=== PATIENT | male | born 1965 | race Caucasian/White ===

== ENCOUNTER 2019-05-03 12:19 | Day surgery (SDC) | payer OTHER ==
[2019-05-03 12:47] VITALS: BMI 23.9
[2019-05-03 13:40] VITALS: TEMP 97.5
[2019-05-03 14:16] VITALS: BP 101/68; PULSE 63
--- NOTE | 2019-05-05 16:24 | PATH ---
Surgical Pathology Report Patient Name: MARGY AYOUB [facility]. Rec. #: [id number] /Age/Gender: 1965 (Age: 53) / M Account: [id number] Location: [facility]-ENDOSCOPY Taken: 05/03/2019 Received: 05/04/2019 Reported: 05/05/2019 Physicians: Guillermo Celestin D.O. Specimen(s) Received A: ANGULARIS AND BODY B: DISTAL ESOPHAGUS PLAQUE Clinical History Reflux without esophagitis Postoperative diagnosis: Gastritis Final Diagnosis A. STOMACH, ANGULARIS AND BODY, BIOPSY: GASTRIC BODY MUCOSA WITH MILD CHRONIC GASTRITIS. IMMUNOHISTOCHEMICAL STAIN FOR H. PYLORI IS NEGATIVE. B. DISTAL ESOPHAGUS, PLAQUE, BIOPSY: SQUAMOUS MUCOSA WITH CHANGES OF MILD REFLUX TYPE ESOPHAGITIS. Electronically Signed Monika Hills M.D. Gross Description A. Received in formalin, labeled "biopsy angularis/body" are 3 mercedes, irregular portions of soft tissue ranging from 0.3-0.4 cm. in greatest dimension. The specimens are submitted in toto in one cassette. B. Received in formalin, labeled "biopsy distal esophagus plaque" is a mercedes, irregular portion of soft tissue measuring 0.5 cm. in greatest dimension. The specimen is submitted in toto in one cassette. 05/04/201905/04/2019
== END 2019-05-03 14:27 | disposition home or self-care (01) ==
LOC: JASU-ENDO 12:19
PROVIDERS: ATTEND Internal Medicine Gastroenterology
PROC: 0DB68ZX Excision of Stomach, Via Natural or Artificial Opening Endoscopic, Diagnostic (ICD-10-PCS; 2019-05-03)
PROC: 0DB38ZX Excision of Lower Esophagus, Via Natural or Artificial Opening Endoscopic, Diagnostic (ICD-10-PCS; principal; 2019-05-03 11:45)
DX: K29.50 Unspecified chronic gastritis without bleeding (principal); K21.0 Gastro-esophageal reflux disease with esophagitis; I10 Essential (primary) hypertension; E78.00 Pure hypercholesterolemia, unspecified; G47.30 Sleep apnea, unspecified; Z86.11 Personal history of tuberculosis; Z87.19 Personal history of other diseases of the digestive system
CPT/HCPCS: 88305-TC; 88342-TC

== ENCOUNTER 2019-05-19 07:14 | Day surgery (SDC) | payer OTHER ==
[2019-05-19 07:55] VITALS: BMI 25.0
[2019-05-19 10:35] VITALS: TEMP 98.5
[2019-05-19 10:37] VITALS: PULSE 54
[2019-05-19 11:11] VITALS: BP 116/74
== END 2019-05-19 11:05 | disposition home or self-care (01) ==
LOC: JASU-ENDO 07:14
PROVIDERS: ATTEND Internal Medicine Gastroenterology
PROC: 0DJD8ZZ Inspection of Lower Intestinal Tract, Via Natural or Artificial Opening Endoscopic (ICD-10-PCS; principal; 2019-05-19 09:00)
DX: Z12.12 Encounter for screening for malignant neoplasm of rectum (principal); Z53.8 Procedure and treatment not carried out for other reasons; G47.30 Sleep apnea, unspecified; J44.9 Chronic obstructive pulmonary disease, unspecified

== ENCOUNTER 2019-06-23 08:02 | Day surgery (SDC) | payer OTHER ==
[2019-06-22 09:05] VITALS: BMI 23.9
[2019-06-23] MEDS ORDERED: ETOMIDATE 20 MG/10 ML AMPUL IVPUSH ONE (09:16)
[2019-06-23 09:53] VITALS: TEMP 98
[2019-06-23 10:39] VITALS: BP 114/66; PULSE 68
--- NOTE | 2019-06-24 18:50 | PATH ---
Surgical Pathology Report Patient Name: MARGY AYOUB [facility]. Rec. #: [id number] /Age/Gender: 1965 (Age: 54) / M Account: [id number] Location: [facility]-ENDOSCOPY Taken: 06/23/2019 Received: 06/23/2019 Reported: 06/24/2019 Physicians: Guillermo Celestin D.O. Specimen(s) Received RECTAL POLYP Clinical History Screening colonoscopy Postoperative diagnosis: Rectal polyp, internal hemorrhoids Final Diagnosis RECTUM, POLYP, BIOPSY: TUBULAR ADENOMA. Electronically Signed Monika Hills M.D. Gross Description Received in formalin, labeled "polyp rectum" is a mercedes, irregular portion of soft tissue measuring 0.7 cm. in greatest dimension. The specimen is submitted in toto in one cassette. MLSZ/06/23/2019 sanml/06/23/2019
== END 2019-06-23 10:36 | disposition home or self-care (01) ==
LOC: JASU-ENDO 08:02
PROVIDERS: ATTEND Internal Medicine Gastroenterology
PROC: 0DBP8ZX Excision of Rectum, Via Natural or Artificial Opening Endoscopic, Diagnostic (ICD-10-PCS; principal; 2019-06-23 09:00)
DX: Z12.11 Encounter for screening for malignant neoplasm of colon (principal); K62.1 Rectal polyp; K64.8 Other hemorrhoids; G47.30 Sleep apnea, unspecified
CPT/HCPCS: 88305-TC

== ENCOUNTER 2020-12-21 06:03 | Day surgery (SDC) | payer OTHER ==
[2020-12-17 14:39] VITALS: BMI 24.7
[2020-12-21] MEDS ORDERED: MIDAZOLAM HCL 2 MG/2 ML SINGLE DOSE VIAL ONE (06:23)
[2020-12-21] MEDS ORDERED: ROPIVACAINE HCL 0.5% 30ML VIAL ONE (06:23)
[2020-12-21] MEDS ORDERED: EPINEPHrine 1:1,000 1 MG/1 ML - 30ML VIAL (INJECTION) ONE (07:10)
[2020-12-21] MEDS ORDERED: BUPIVACAINE HCL/PF 0.25% (2.5MG/ML) 10 ML VIAL ONE (07:10)
[2020-12-21] MEDS ORDERED: SUCCINYLCHOLINE CHLORIDE 200 MG/10 ML SYRINGE ONE (07:29)
[2020-12-21] MEDS ORDERED: PROPOFOL 20 ML ONE ×7 (07:29)
[2020-12-21] MEDS ORDERED: ONDANSETRON 4 MG/2 ML VIAL ONE (07:50)
[2020-12-21] MEDS ORDERED: KETOROLAC TROMETHAMINE 30 MG/1 ML VIAL ONE (07:50)
[2020-12-21] MEDS ORDERED: DEXAMETHASONE SOD PHOSPHATE 4 MG/1 ML VIAL ONE (07:50)
[2020-12-21] MEDS ORDERED: ceFAZolin SODIUM 1 GM VIAL ONE (07:50)
[2020-12-21] MEDS ORDERED: ePHEDrine SULFATE 50 MG/1 ML AMPULE ONE (07:50)
[2020-12-21] MEDS ORDERED: LIDOCAINE HCL/PF 2% SDV 5ML VIAL ONE (07:50)
[2020-12-21] MEDS ORDERED: BUPIVACAINE HCL/PF 0.25% (2.5MG/ML) 10 ML VIAL IJ ONE (08:41)
[2020-12-21] MEDS ORDERED: ONDANSETRON 4 MG/2 ML VIAL IVPUSH PRN (10:18)
[2020-12-21] MEDS ORDERED: PROMETHAZINE HCL 25 MG/1 ML VIAL IVPUSH PRN (10:18)
[2020-12-21] MEDS ORDERED: oxyCODONE HCL 5 MG TABLET PO PRN ×2 (10:18)
[2020-12-21 12:09] VITALS: BP 108/70; PULSE 84; TEMP 97.9
== END 2020-12-21 12:08 | disposition home or self-care (01) ==
LOC: FASU 06:03
PROVIDERS: ATTEND Orthopaedic Surgery
PROC: 0LS34ZZ Reposition Right Upper Arm Tendon, Percutaneous Endoscopic Approach (ICD-10-PCS; 2020-12-21)
PROC: 0RNJ4ZZ Release Right Shoulder Joint, Percutaneous Endoscopic Approach (ICD-10-PCS; 2020-12-21)
PROC: 0MM14ZZ Reattachment of Right Shoulder Bursa and Ligament, Percutaneous Endoscopic Approach (ICD-10-PCS; 2020-12-21)
PROC: 0LQ14ZZ Repair Right Shoulder Tendon, Percutaneous Endoscopic Approach (ICD-10-PCS; principal; 2020-12-21 08:11)
PROC: 0RHJ44Z Insertion of Internal Fixation Device into Right Shoulder Joint, Percutaneous Endoscopic Approach (ICD-10-PCS; 2020-12-21 08:11)
DX: M75.121 Complete rotator cuff tear or rupture of right shoulder, not specified as traumatic (principal); M75.21 Bicipital tendinitis, right shoulder; M75.01 Adhesive capsulitis of right shoulder; M94.211 Chondromalacia, right shoulder; M65.811 Other synovitis and tenosynovitis, right shoulder; S43.431A Superior glenoid labrum lesion of right shoulder, initial encounter; X58.XXXA Exposure to other specified factors, initial encounter; Y92.9 Unspecified place or not applicable; Y93.9 Activity, unspecified; G47.30 Sleep apnea, unspecified; I10 Essential (primary) hypertension
CPT/HCPCS: 23430; 29823; 29826; 29827; C1713; 88304-TC; 94760

== ENCOUNTER 2022-04-15 04:12 | Day surgery (SDC) | payer OTHER ==
[2022-04-10 14:56] VITALS: BMI 24.1
[2022-04-15] MEDS ORDERED: ACETAMINOPHEN 325 MG TABLET (FP) PO PRN (11:34)
[2022-04-15] MEDS ORDERED: ONDANSETRON 4 MG/2 ML VIAL IVPUSH PRN (11:34)
[2022-04-15] MEDS ORDERED: oxyCODONE HCL 5 MG TABLET PO PRN (11:34)
[2022-04-15] MEDS ORDERED: MIDAZOLAM HCL 2 MG/2 ML SINGLE DOSE VIAL ONE (11:41)
[2022-04-15] MEDS ORDERED: LACTATED RINGERS SOLUTION 1,000 ML IV SCH (11:45)
[2022-04-15] MEDS ORDERED: KETOROLAC TROMETHAMINE 30 MG/1 ML VIAL ONE (12:12)
[2022-04-15 13:15] VITALS: PULSE 50
[2022-04-15 13:50] VITALS: BP 109/78; TEMP 97.9
== END 2022-04-15 13:35 | disposition home or self-care (01) ==
LOC: JASU-SURG 04:12
PROVIDERS: ATTEND Urology
PROC: 0TF3XZZ Fragmentation in Right Kidney Pelvis, External Approach (ICD-10-PCS; principal; 2022-04-15 12:00)
DX: N20.0 Calculus of kidney (principal)

== ENCOUNTER 2023-05-29 04:29 | Day surgery (SDC) | payer OTHER ==
[2023-05-28 10:45] VITALS: BMI 23.3
[2023-05-29] MEDS ORDERED: LIDOCAINE HCL/PF 1% SDV 5ML VIAL ONE (08:16)
[2023-05-29] MEDS ORDERED: BUPIVACAINE HCL/PF 0.75% 10 ML VIAL ONE (08:16)
[2023-05-29] MEDS ORDERED: ACETAMINOPHEN 500 MG TABLET (FP) PO PRN (08:30)
[2023-05-29 12:34] VITALS: RESP 18
[2023-05-29] MEDS ORDERED: LIDOCAINE 1% P/F 10 MG/ML VIAL INF ONE (14:15)
[2023-05-29] MEDS ORDERED: BUPIVACAINE HCL/PF 0.75% 10 ML VIAL NR ONE ×2 (14:15)
[2023-05-29 14:46] VITALS: BP 116/77; PULSE 53; TEMP 98.5
== END 2023-05-29 15:00 | disposition home or self-care (01) ==
LOC: JASU-SURG 04:29
PROVIDERS: ATTEND Pain Medicine Pain Medicine
PROC: 3E0T33Z Introduction of Anti-inflammatory into Peripheral Nerves and Plexi, Percutaneous Approach (ICD-10-PCS; 2023-05-29)
PROC: 3E0T3BZ Introduction of Anesthetic Agent into Peripheral Nerves and Plexi, Percutaneous Approach (ICD-10-PCS; principal; 2023-05-29 14:45)
DX: M54.16 Radiculopathy, lumbar region (principal)

== ENCOUNTER 2023-07-31 04:39 | Day surgery (SDC) | payer OTHER ==
[2023-07-29 17:16] VITALS: BMI 23.3
[~2023-07-31 04:39] MED LIST: BUPIVACAINE HCL/PF 0.75% 10 ML VIAL NR ONE; LIDOCAINE HCL 1%, 10 MG/ML (20ML VIAL) NR ONE
[2023-07-31 07:09] VITALS: RESP 18
[2023-07-31] MEDS ORDERED: BUPIVACAINE HCL/PF 0.75% 10 ML VIAL ONE (07:29)
[2023-07-31] MEDS ORDERED: LIDOCAINE HCL/PF 1% SDV 5ML VIAL ONE (07:29)
[2023-07-31] MEDS ORDERED: BUPIVACAINE HCL/PF 0.75% 10 ML VIAL NR ONE (08:55)
[2023-07-31] MEDS ORDERED: LIDOCAINE HCL 1%, 10 MG/ML (20ML VIAL) NR ONE (08:55)
[2023-07-31 10:38] VITALS: BP 119/72; PULSE 58; TEMP 97.8
[2023-07-31] MEDS ORDERED: ACETAMINOPHEN 500 MG TABLET (FP) PO PRN (12:32)
== END 2023-07-31 09:42 | disposition home or self-care (01) ==
LOC: JASU-SURG 04:39
PROVIDERS: ATTEND Pain Medicine Pain Medicine
PROC: 3E0T3BZ Introduction of Anesthetic Agent into Peripheral Nerves and Plexi, Percutaneous Approach (ICD-10-PCS; principal; 2023-07-31 08:45)
DX: M47.816 Spondylosis without myelopathy or radiculopathy, lumbar region (principal)
CPT/HCPCS: 76000-TC-FY

== ENCOUNTER 2023-09-04 04:06 | Day surgery (SDC) | payer OTHER ==
[2023-09-03 11:41] VITALS: BMI 23.3
[2023-09-04] MEDS ORDERED: LIDOCAINE HCL/PF 2% SDV 5ML VIAL ONE (07:22)
[2023-09-04] MEDS ORDERED: BUPIVACAINE HCL/PF 0.75% 10 ML VIAL ONE (07:22)
[2023-09-04] MEDS ORDERED: LIDOCAINE HCL/PF 1% SDV 5ML VIAL ONE (07:22)
[2023-09-04] MEDS ORDERED: DEXAMETHASONE SOD PHOSPHATE 10 MG/1 ML VIAL ONE (07:23)
[2023-09-04] MEDS ORDERED: LIDOCAINE HCL/PF 2% SDV 5ML VIAL INF ONE ×2 (08:14→10:36)
[2023-09-04] MEDS ORDERED: LIDOCAINE 1% P/F 10 MG/ML VIAL INF ONE ×2 (08:16→10:36)
[2023-09-04] MEDS ORDERED: BUPIVACAINE HCL/PF 0.75% 10 ML VIAL NR ONE ×3 (08:17→10:36)
[2023-09-04] MEDS ORDERED: DEXAMETHASONE SOD PHOSPHATE 10 MG/1 ML VIAL IVPUSH ONE ×2 (08:18→10:36)
[2023-09-04] MEDS ORDERED: ACETAMINOPHEN 500 MG TABLET (FP) PO PRN (10:55)
[2023-09-04 14:17] VITALS: BP 115/75; PULSE 72; RESP 20; TEMP 97.9
== END 2023-09-04 11:12 | disposition home or self-care (01) ==
LOC: JASU-SURG 04:06
PROVIDERS: ATTEND Pain Medicine Pain Medicine
PROC: 015B3ZZ Destruction of Lumbar Nerve, Percutaneous Approach (ICD-10-PCS; principal; 2023-09-04 10:15)
DX: M47.816 Spondylosis without myelopathy or radiculopathy, lumbar region (principal)
CPT/HCPCS: 76000-TC-FY; J1100

== ENCOUNTER 2023-10-02 04:12 | Day surgery (SDC) | payer OTHER ==
[2023-09-29 16:09] VITALS: BMI 24.1
[~2023-10-02 04:12] MED LIST changes: -BUPIVACAINE HCL/PF 0.75% 10 ML VIAL NR ONE; +DEXAMETHASONE SOD PHOSPHATE 10 MG/1 ML VIAL IVPUSH ONE; -LIDOCAINE HCL 1%, 10 MG/ML (20ML VIAL) NR ONE
[2023-10-02 08:04] VITALS: RESP 18
[2023-10-02] MEDS ORDERED: LIDOCAINE 1% P/F 10 MG/ML VIAL INF ONE (09:31)
[2023-10-02] MEDS ORDERED: LIDOCAINE HCL/PF 2% SDV 5ML VIAL INF ONE (09:31)
[2023-10-02] MEDS ORDERED: BUPIVACAINE HCL/PF 0.5% (5MG/ML) 10 ML VIAL IJ ONE (09:32)
[2023-10-02] MEDS ORDERED: DEXAMETHASONE SOD PHOSPHATE 10 MG/1 ML VIAL IVPUSH ONE (09:56)
[2023-10-02 10:20] VITALS: TEMP 98
[2023-10-02 10:53] VITALS: BP 116/69; PULSE 70
[2023-10-02] MEDS ORDERED: ACETAMINOPHEN 500 MG TABLET (FP) PO PRN (11:51)
== END 2023-10-02 10:53 | disposition home or self-care (01) ==
LOC: JASU-SURG 04:12
PROVIDERS: ATTEND Pain Medicine Pain Medicine
PROC: 015B3ZZ Destruction of Lumbar Nerve, Percutaneous Approach (ICD-10-PCS; principal; 2023-10-02 09:30)
DX: M47.816 Spondylosis without myelopathy or radiculopathy, lumbar region (principal)
CPT/HCPCS: 76000-TC-FY; J1100

== ENCOUNTER 2024-07-05 04:25 | Day surgery (SDC) | payer OTHER ==
[2024-06-30 10:46] VITALS: BMI 24.0
[2024-07-05 11:54] VITALS: TEMP 97.7
[2024-07-05 14:23] VITALS: RESP 18
[2024-07-05 14:25] VITALS: BP 103/68; PULSE 63
== END 2024-07-05 12:35 | disposition home or self-care (01) ==
LOC: JASU-ENDO 04:25
PROVIDERS: ATTEND Internal Medicine Gastroenterology
PROC: 3E0H8KZ Introduction of Other Diagnostic Substance into Lower GI, Via Natural or Artificial Opening Endoscopic (ICD-10-PCS; 2024-07-05)
PROC: 0DBP8ZX Excision of Rectum, Via Natural or Artificial Opening Endoscopic, Diagnostic (ICD-10-PCS; 2024-07-05)
PROC: 0DBN8ZX Excision of Sigmoid Colon, Via Natural or Artificial Opening Endoscopic, Diagnostic (ICD-10-PCS; 2024-07-05)
PROC: 0DBN8ZX Excision of Sigmoid Colon, Via Natural or Artificial Opening Endoscopic, Diagnostic (ICD-10-PCS; principal; 2024-07-05 09:30)
DX: Z12.11 Encounter for screening for malignant neoplasm of colon (principal); D12.8 Benign neoplasm of rectum; K63.5 Polyp of colon; Z86.010 Personal history of colon polyps; K64.8 Other hemorrhoids
CPT/HCPCS: 88305-TC